=== PATIENT | male | born 1960 | race Caucasian/White ===

== ENCOUNTER 2021-11-21 19:20 | Emergency (ER) | payer OTHER ==
[~2021-11-21] VITALS: Ht 177.8 cm; Wt 86.2 kg
[2021-11-21] MEDS ORDERED: OLANZAPINE 10 MG VIAL IM ONE ×2 (19:59→20:00)
--- NOTE | 2021-11-21 20:00 | NUR ---
[id number] & [employer]. RUNNING IN & OUT OF TRAFFIC. ADMITS TO METH USE YESTERDAY. ON ASSESSMENT PT RESPONDING TO EXTERNAL STIMULI "SEEING SPIRITS. ON ASSESSMENT NOTED TACHYCARDIC AND HYPERGLYCEMIC PER [employer] REPORT. CHANGED INTO GOWN AND SAFETY MEASURES IN PLACED SITTER AT BEDSIDE.
--- NOTE | 2021-11-21 20:02 | NUR ---
FATOUMATA COLLECTED AND SENT TO LAB
--- NOTE | 2021-11-21 20:02 | NUR ---
18g rf. blood collected and sent to lab.
--- NOTE | 2021-11-21 20:03 | NUR ---
URINE COLLECTED AND SENT TO LAB
[2021-11-21 20:12] LABS: BILIRUBIN,URINE NEGATIVE (NEGATIVE); COLOR,URINE YELLOW (YELLOW); LEUKOCYTE ESTERASE ,URINE NEGATIVE (NEGATIVE); NITRITE, URINE NEGATIVE (NEGATIVE); PROTEIN,URINE 30 mg/dl (NEGATIVE); UGLUCOSE >=1000 mg/dL (NEGATIVE); UROBILINOGEN,URINE 0.2 EU/dL (0.2)
[2021-11-21 20:14] LABS: BASOPHILS # (AUTO) 0.1 K/uL (0.0-0.2); BASOPHILS % (AUTO) 1.2 % (0.0-2.0); EOSINOPHILS % (AUTO) 0.6 % (0.0-6.0); HEMATOCRIT 45 % (39-51); HEMOGLOBIN 15.3 g/dL (13.5-17.5); LYMPHOCYTES # (AUTO) 1.2 K/uL (0.8-4.8); LYMPHOCYTES % (AUTO) 13.4 % (20.0-44.0); MEAN CORPUSCULAR HGB CONC 34 g/dl (31.0-36.0); MEAN CORPUSCULAR VOLUME 88 fL (80-96); MONOCYTES # (AUTO) 0.6 K/uL (0.1-1.30); MONOCYTES % (AUTO) 6.8 % (2.0-12.0); NEUTROPHILS # (AUTO) 6.9 K/uL (1.8-8.9); PLATELET COUNT (AUTO) 277 K/uL (150-450); RED BLOOD CELL COUNT(AUTO) 5.13 MIL/uL (4.5-6.0); WHITE BLOOD COUNT (AUTO) 8.8 K/uL (4.3-11.0)
[2021-11-21 20:19] LABS: CALCIUM, SERUM 9.2 mg/dL (8.5-10.1); CARBON DIOXIDE 27 mmol/L (21-32); CHLORIDE 104 mmol/L (98-107); CREATININE 1.2 mg/dL (0.6-1.3); POTASSIUM 4.1 mmol/L (3.5-5.1); SODIUM SERUM 141 mmol/L (136-145); UREA NITROGEN, BLOOD 12 mg/dL (7-18)
--- NOTE | 2021-11-21 20:20 | NUR ---
GLUCOSE: 365, MD AWARE
[2021-11-21 20:21] LABS: GLUCOSE 365 mg/dL (74-106)
[2021-11-21 20:25] LABS: ALANINE AMINOTRANSFERASE 75 U/L (12-78); ALBUMIN 3.8 g/dL (3.4-5.0); ALCOHOL, BLOOD < 3 mg/dL (0-0); ALKALINE PHOSPHATASE 83 U/L (46-116); ASPARTATE AMINOTRANSFERASE 34 U/L (15-37); BILIRUBIN,DIRECT 0.3 mg/dL (0.0-0.2); BILIRUBIN,TOTAL 0.9 mg/dL (0.2-1.0); TOTAL PROTEIN, SERUM 7.2 g/dL (6.4-8.2)
[2021-11-21 21:41] LABS: BACTERIA,URINE None seen /HPF (None Seen); COARSE GRANULAR CASTS,URINE Few /LPF (None Seen); MUCUS,URINE Few /LPF (None Seen); RBC,URINE 0-2 /HPF (0-2); SQUAMOUS EPITHELIAL CELL,UR 0-2 /HPF (None Seen); WBC,URINE 0-2 /HPF (0-3); YEAST,URINE Few /HPF (None Seen)
--- NOTE | 2021-11-22 00:03 | NUR ---
PT SLEEPING COMOFRTABLY. REMAINS ON MONITOR AND V/S WNL. SITTER AT BEDSIDE.
--- NOTE | 2021-11-22 05:46 | NUR ---
Patient discharged to home in stable condition. Written and verbal after care instructions given. Patient verbalizes understanding of instruction.IV removed. Catheter intact and site benign. Pressure and 4x4 applied to site. No bleeding noted.
[2021-11-22 06:05] VITALS: BP 127/72
== END 2021-11-22 05:50 | disposition home or self-care (01) ==
LOC: ER 19:23
DX: F29 Unspecified psychosis not due to a substance or known physiological condition (principal); F15.90 Other stimulant use, unspecified, uncomplicated; Z20.822 Contact with and (suspected) exposure to COVID-19; R73.9 Hyperglycemia, unspecified
CPT/HCPCS: 99283; 96372; 85025; 80048; 80076; 81001; 36415; 82962; 87426; 80143; 80320; 80307; J3490; C9803; G0480